=== PATIENT | female | born 1995 | race Caucasian/White ===

== ENCOUNTER 2023-06-18 23:02 | Emergency (ER) | payer BC, SELFPAY ==
[2023-06-18 23:28] VITALS: BP 159/102; PULSE 76; TEMP 36.7; O2SAT 100; BMI 24.0
--- NOTE | 2023-06-18 23:43 | ECG_ITS ---
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
[2023-06-18 23:46] VITALS: BP 149/92
--- NOTE | 2023-06-18 23:54 | ED.GENADUL1 ---
HPI HPI - General Adult General Chief complaint: Eye Problems Stated complaint: POSS HYPERTENSION Time Seen by Provider: 06/18/23 23:41 Source: patient Mode of arrival: walk-in History of Present Illness HPI narrative: This 27-year-old female who is day 1 after having a normal spontaneous vaginal delivery yesterday at [facility] lens with Dr. Tena presents for evaluation after she had acute onset of visual changes in her left eye. The patient states she had just put her baby to bed and had visual change in the left eye. She states that look like a shade coming down over her eye. That has since improved. She did have preeclampsia with her last . After being sent home she was told that she had to have a blood pressure cuff at home. She took her blood pressure initially it was in the 130s over 60s. She retook it and noticed the 140s over 70s, she took it again and it was over 200 systolic. She denies any chest pain or shortness of breath. She did take Tylenol earlier in the day for some lower abdominal pain and vaginal pain after her delivery. She states she was not kept in the hospital because she is a 2nd time mother. She did have preeclampsia with her 1st requiring hospitalization. She recalls that when she forgot to take her labetalol at that time she had visual changes like she was experiencing tonight. She did not call her NEEDLE MAKER. Upon arrival a manual blood pressure was 149/92. She does not have any focal neurologic symptoms. She has no lower extremity swelling. Related Data Allergies Allergy/AdvReac Type Severity Reaction Status Date / Time No Known Drug Allergies Allergy Verified 06/18/23 23:35 Opioid HPI Opioid Management Most Recent Opioid Data: No Data to Display Review of Systems ROS Status of ROS 10 or more systems reviewed and unremarkable except as noted in history and below Exam Narrative Exam Narrative: Nurses note and vital signs reviewed and patient is not hypoxic. Blood pressure is noted to be elevated at 149/92 General: The patient appears well and in no apparent distress. Patient is resting comfortably on cart. Skin: Warm, dry, no pallor noted. There is no rash noted. Head: Normocephalic, atraumatic Eye: Normal conjunctiva, no drainage, EOMI. PERRL, Vision is grossly intact. Normal fundoscopic exam bilaterally. Ears, Nose, Mouth, and Throat: oral mucosa is moist. Nares patent. Mouth without vesicles. Ear canals patent. Tm's without Erythema Cardiovascular: Regular Rate and Rhythm Respiratory: Patient is in no distress, no accessory muscle use, lungs are clear to auscultation, no wheezing, rales or rhonchi Back: non-tender, no CVA tenderness bilaterally to percussion. GI: Normal bowel sounds, no tenderness to palpation, no masses appreciated. No rebound, guarding, or rigidity noted. Musculoskeletal: The patient has no evidence of calf tenderness, no pitting edema, symmetrical pulses noted bilaterally Neurological: A&O x4, normal speech, Speech Lang Path Therapist strength is intact, negative pronator drift, no facial droop Psychiatric: Cooperative Constitutional Vital Signs, click to edit/add: Last Vital Signs Temp 98.1 F 06/18/23 23:28 Pulse 82 06/19/23 00:10 Resp 18 06/19/23 00:10 BP 117/89 06/19/23 00:53 Pulse Ox 99 06/19/23 00:10 O2 Del Method Room Air 06/18/23 23:28 Course Vital Signs Vital signs: Vital Signs Temperature 98.1 F 06/18/23 23:28 Pulse Rate 76 06/18/23 23:28 Respiratory Rate 20 06/18/23 23:28 Blood Pressure 159/102 H 06/18/23 23:28 Pulse Oximetry 100 06/18/23 23:28 Oxygen Delivery Method Room Air 06/18/23 23:28 Temperature 98.1 F 06/18/23 23:28 Pulse Rate 82 06/19/23 00:10 Respiratory Rate 18 06/19/23 00:10 Blood Pressure 117/89 06/19/23 00:53 Pulse Oximetry 99 06/19/23 00:10 Oxygen Delivery Method Room Air 06/18/23 23:28 Medical Decision Making MDM Narrative Medical decision making narrative: This 27-year-old female who is one day and has a history of preeclampsia with her 1st presents for evaluation of elevated blood pressure and visual changes that started earlier in the evening after putting her baby to bed. She is breast-feeding. She took her blood pressure 3 times at home and her readings were consistently over 130/80. Upon arrival emergency department a manual blood pressure was 149/92.Physical exam was otherwise benign. An IV was placed in a routine labs are ordered. She has a normal white count and hemoglobin. Electrolytes are normal. LFts are normal with the exception of an elevated Alk phos. Urine is positive for trace protein however there is large blood. She does not have any lower extremity swelling. Her visual symptoms had resolved and her neuro exam and fundoscopic exam was normal. I spoke with Dr. Warren, Ob resource paraprofessional at [facility] who had discharged this patient earlier in the day and Call that her blood pressure was not elevated at the time of discharge and she was not sent home on any blood pressure medications. I had ordered her 50mg po labetolol however prior to her receiving that, her blood pressure came down to 117/89. She will be sent home with a dose of labetolol to use as needed if her repeat BP readings are greater than 130-140 systolic or >90 diastolic and she was encouraged to follow up tomorrow with her OB. Lab Data Labs: Lab Results 06/18/23 06/19/23 Range/Units 23:58 00:06 WBC 12.3 H (4.0-11.0) 10^3/uL RBC 4.08 L (4.20-5.40) 10^6/uL Hgb 11.8 L (12.0-16.0) g/dL Hct 37.1 (36.0-48.0) % MCV 90.9 (81.0-99.0) fL MCH 28.9 (26.7-34.0) pg MCHC 31.8 (29.9-35.2) g/dL RDW 13.5 (11.0-15.0) % Plt Count 232 (150-450) 10^3/uL MPV 11.3 (9.5-13.5) fL Neut % (Auto) 64.3 (43.0-75.0) % Lymph % (Auto) 25.5 (20.5-60.0) % [place] % (Auto) 8.7 (1.7-12.0) % Eos % (Auto) 1.0 (0.9-7.0) % Baso % (Auto) 0.2 (0.2-2.0) % Neut # (Auto) 7.9 H (1.4-6.5) 10^3/uL Lymph # (Auto) 3.1 (1.2-3.8) 10^3/uL [place] # (Auto) 1.1 H (0.3-0.8) 10^3/uL Eos # (Auto) 0.1 (0.0-0.7) 10^3/uL Baso # (Auto) 0.0 (0.0-0.1) 10^3/uL Abs Immat Gran (auto) 0.04 H (0.00-0.03) 10^3/uL Imm/Tot Granulo (auto) 0.3 (0.0-0.5) % Sodium 140 (136-145) mmol/L Potassium 3.9 (3.5-5.1) mmol/L Chloride 105 (98-107) mmol/L Carbon Dioxide 25.5 (21.0-32.0) mmol/L Anion Gap 13.4 BUN 8.0 (7.0-18.0) mg/dL Creatinine 0.72 (0.55-1.02) mg/dL Est GFR ( Amer) >60 (>=60) Est GFR (Non-Af Amer) >60 (>=60) BUN/Creatinine Ratio 11.1 Glucose 80 (74-106) mg/dL Calcium 9.9 (8.5-10.1) mg/dL Magnesium 2.0 (1.8-2.4) mg/dL Total Bilirubin 0.2 (0.2-1.0) mg/dL AST 23 (15-37) U/L ALT 15 (14-59) U/L Alkaline Phosphatase 195 H (46-116) U/L Total Protein 7.5 (6.4-8.2) g/dL Albumin 2.9 L (3.4-5.0) g/dL Globulin 4.6 g/dL Albumin/Globulin Ratio 0.6 Urine Color Lt. yellow (YELLOW) Urine Clarity Clear (CLEAR) Urine pH 8.0 (5.0-9.0) Ur Specific [place] 1.015 (1.005-1.025) Urine Protein Trace (NEG/TRACE) mg/dL Urine Glucose (UA) Negative (NEGATIVE) mg/dL Urine Ketones Negative (NEGATIVE) mg/dL Urine Occult Blood Large A (NEGATIVE) Urine Nitrite Negative (NEGATIVE) Urine Bilirubin Negative (NEGATIVE) Urine Urobilinogen 0.2 (0.2-1.0) EU/dL Ur Leukocyte Esterase Small A (NEGATIVE) Urine RBC >100 A (0-2) #/HPF Urine WBC 2-5 A (NONE SEEN) #/HPF Ur Squamous Epith Cells Few A (NONE/RARE) #/LPF Urine Crystals None seen (None Seen) #/HPF Urine Bacteria None seen (NONE SEEN) #/HPF Urine Casts None seen (NONE SEEN) #/LPF Urine Mucus None seen (NONE SEEN) Ur Culture Indicated? No Discharge Plan Discharge Stand Alone Forms: Portal Instructions Chief Complaint: Eye Problems Clinical Impression: Elevated blood pressure reading Patient Disposition: Home, Self-Care Time of Disposition Decision: 00:57 Condition: Good Print Language: Marshallese Instructions: Preeclampsia During (ED) Additional Instructions: Call your [facility] office tomorrow for an appointment. Return to the ED as needed for ongoing or worsening symptoms or any concerns. Referrals: CHRISTOPHER MUKHERJEE [Primary Care Provider] - 1 week
[2023-06-19 00:10] VITALS: BP 134/99; PULSE 82; O2SAT 99
[2023-06-19 00:16] LABS: Bilirubin Urine NEGATIVE (NEGATIVE); Blood Urine LARGE (NEGATIVE); Clarity Urine CLEAR (CLEAR); Color Urine LT. YELLOW (YELLOW); Glucose Urine UA NEGATIVE (NEGATIVE); Ketones Urine NEGATIVE (NEGATIVE); Leukocyte Esterase Urine SMALL (NEGATIVE); Nitrite Urine NEGATIVE (NEGATIVE); Protein Urine TRACE mg/dL (NEG/TRACE); Specific Gravity Urine 1.015 (1.005-1.025); Urobilinogen Urine 0.2 EU/dL (0.2-1.0)
[2023-06-19 00:17] LABS: Basophils Percent Auto 0.2 % (0.2-2.0); Eosinophils Absolute Auto 0.1 10^3/uL (0.0-0.7); Hematocrit 37.1 % (36.0-48.0); Hemoglobin 11.8 g/dL (12.0-16.0); Immature Granulocytes Abs Auto 0.04 10^3/uL (0.00-0.03); Immature Granulocytes Pct Auto 0.3 % (0.0-0.5); Lymphocytes Absolute Auto 3.1 10^3/uL (1.2-3.8); Lymphocytes Percent Auto 25.5 % (20.5-60.0); Mean Corpuscular HGB Conc 31.8 g/dL (29.9-35.2); Mean Corpuscular Hemoglobin 28.9 pg (26.7-34.0); Mean Corpuscular Volume 90.9 fL (81.0-99.0); Mean Platelet Volume 11.3 fL (9.5-13.5); Monocytes Absolute Auto 1.1 10^3/uL (0.3-0.8); Monocytes Percent Auto 8.7 % (1.7-12.0); Neutrophils Absolute Auto 7.9 10^3/uL (1.4-6.5); Neutrophils Percent Auto 64.3 % (43.0-75.0); Platelet Count 232 10^3/uL (150-450); Red Blood Count 4.08 10^6/uL (4.20-5.40); Red Cell Distribution Width 13.5 % (11.0-15.0); White Blood Count 12.3 10^3/uL (4.0-11.0)
[2023-06-19 00:22] LABS: Bacteria Urine NONE SEEN #/HPF (NONE SEEN); Mucus Urine NONE SEEN (NONE SEEN); RBC Urine >100 #/HPF (0-2)
[2023-06-19 00:23] LABS: Cast Seen? NONE SEEN #/LPF (NONE SEEN); Crystals Seen? None Seen #/HPF (None Seen); Squamous Epithelial Cell Urine FEW #/LPF (NONE/RARE); Urine Culture Indicated NO
[2023-06-19 00:32] LABS: Alanine Aminotransferase 15 U/L (14-59); Albumin Globulin Ratio 0.6; Albumin Level 2.9 g/dL (3.4-5.0); Alkaline Phosphatase 195 U/L (46-116); Anion Gap 13.4; Aspartate Amino Transferase 23 U/L (15-37); BUN Creatinine Ratio 11.1; Bilirubin Total 0.2 mg/dL (0.2-1.0); Calcium 9.9 mg/dL (8.5-10.1); Carbon Dioxide 25.5 mmol/L (21.0-32.0); Chloride 105 mmol/L (98-107); Estimated GFR (African America >60 (>=60); Estimated GFR (Non-African Ame >60 (>=60); Globulin 4.6 g/dL; Glucose 80 mg/dL (74-106); Potassium 3.9 mmol/L (3.5-5.1); Sodium 140 mmol/L (136-145); Total Protein 7.5 g/dL (6.4-8.2)
[2023-06-19 00:53] VITALS: BP 117/89
[2023-06-19] MEDS: LABETALOL HCL 100 MG TABLET 50 MG PO (01:07)
[2023-06-19 01:13] VITALS: BP 130/80; PULSE 82; O2SAT 100
== END 2023-06-19 01:13 | disposition home or self-care (01) ==
PROVIDERS: Emergency Provider Emergency Medicine; PCP Family Medicine
DX: O16.5 Unspecified maternal hypertension, complicating the puerperium (principal)
CPT/HCPCS: 36415; 80053; 81001; 83735; 85025; 93005; 99284